=== PATIENT | male | born 1950 | race Two or more races ===

== ENCOUNTER → 2019-09-03 | Outpatient (CLI) | payer OTHER, MEDICAID ==
[~2019-09-03] VITALS: Ht 175.3 cm; Wt 140.6 kg
[~2019-09-03] MED LIST: ADENOSINE 118 MG in GIVE UN-DILUTED 0 ML IV ONE; ADENOSINE 90 MG/30 ML INJ IV ONE
== END | disposition home or self-care (01) ==
LOC: Rad HDHVI 09:05
PROVIDERS: ATTEND Internal Medicine
DX: K21.9 Gastro-esophageal reflux disease without esophagitis (principal); R07.9 Chest pain, unspecified; R06.02 Shortness of breath; E11.9 Type 2 diabetes mellitus without complications; R63.8 Other symptoms and signs concerning food and fluid intake; E78.5 Hyperlipidemia, unspecified; G47.33 Obstructive sleep apnea (adult) (pediatric); M19.90 Unspecified osteoarthritis, unspecified site; I10 Essential (primary) hypertension
CPT/HCPCS: 78452; 93005; 96374; 96375; A9500; J0153

== ENCOUNTER → 2019-09-08 | Outpatient (CLI) | payer OTHER, MEDICAID ==
[~2019-09-08] MED LIST changes: -ADENOSINE 118 MG in GIVE UN-DILUTED 0 ML IV ONE; -ADENOSINE 90 MG/30 ML INJ IV ONE; +AMLO10TA13 PO; +ATOR40TA52 PO; +ENAL20TA8 PO; +GABA300C10 PO; +INSLANTI SC; +METF-370 PO; +METH5T PO; +OMEP-335 PO
== END | disposition home or self-care (01) ==
LOC: Rad HDHVI 13:09
PROVIDERS: ATTEND Internal Medicine Cardiovascular Disease
DX: I11.9 Hypertensive heart disease without heart failure (principal); R06.02 Shortness of breath; R07.9 Chest pain, unspecified; G47.33 Obstructive sleep apnea (adult) (pediatric)
CPT/HCPCS: 93306

== ENCOUNTER → 2019-10-10 | Outpatient (CLI) | payer OTHER, MEDICAID ==
[~2019-10-10] MED LIST changes: +ENAL20TA PO; -ENAL20TA8 PO
[2019-10-10 09:40] VITALS: BP 162/60
--- NOTE | 2019-10-10 09:40 | NUR ---
[facility] PT ARRIVED TO THE [facility] FOR PRE OP EKG, CXR, AND LABS FOR [facility]. A/O X4, AMBULATORY.
--- NOTE | 2019-10-10 10:03 | NUR ---
EKG DONE BY JAMAAL WARE ...SR 78
[2019-10-10 10:10] VITALS: BP 158/59
--- NOTE | 2019-10-10 10:10 | NUR ---
Pre-Op Discharge Summary: See e-MAR for any medications given for this visit. Pre-op orders received and carried out per MD of EKG, LABS and chest xrays. Patient given a copy of EKG with instructions to go to [facility] out patient for further follow up care. PT ALSO TOLD COVID TESTING WILL BE PREFORMED AT [facility] FOR PRECAUTIONARY, AND THAT THEY NEED TO STAY ISOLATED UNTIL AFTER PROCEDURE. PT VERBALIZED UNDERSTANDING. NOTE EKG DONE BY JAMAAL WARE
[2019-10-10 12:03] LABS: Basophils # (auto) 0 10 ^3/uL (0-0.2); Basophils % (auto) 0.3 % (0.0-2.0); Eosinophils # (auto) 0.2 10 ^3/uL (0-0.8); Hematocrit 45.3 % (41.0-53.0); Hemoglobin 14.8 g/dL (13.5-17.5); Lymphocytes # (auto) 2.1 10 ^3/uL (0.4-5.4); Mean Corpuscular Hemoglobin 29.2 pg (28.0-32.0); Mean Corpuscular Hgb Conc. 32.7 g/dL (32.0-36.0); Mean Corpuscular Volume 89.4 fL (80.0-100.0); Monocytes # (auto) 0.7 10 ^3/uL (0-1.3); Monocytes % (auto) 7.6 % (0.0-12.0); Neutrophils # (auto) 6.4 10 ^3/uL (1.6-8.6); Neutrophils % (auto) 68.1 % (37.0-80.0); Nucleated Red Blood Cells % 0.1 %; Platelet Count (auto) 252 10^3/uL (140-450); Red Blood Cells 5.06 10^6/uL (4.5-5.90); Red Cell Distribution Width 12.8 % (11.8-14.3); White Blood Cell 9.5 10^3/uL (4.4-10.8)
[2019-10-10 12:15] LABS: INR 0.97 (0.9-1.15); Partial Thromboplastin Time 29.3 sec (23.64-32.05)
[2019-10-10 12:29] LABS: Potassium 4.2 mmol/L (3.5-5.1)
[2019-10-10 12:40] LABS: BUN/Creatinine Ratio 19.2; Calcium 8.6 mg/dL (8.5-10.1)
== END | disposition home or self-care (01) ==
LOC: Rad HDHVI 08:53
PROVIDERS: ATTEND Internal Medicine
DX: Z01.812 Encounter for preprocedural laboratory examination (principal); I70.0 Atherosclerosis of aorta
CPT/HCPCS: 36415; 71046; 80048; 85025; 85610; 85730; 93005; G0463

== ENCOUNTER 2019-10-15 07:49 | Inpatient (IN) | payer OTHER, MEDICAID ==
[~2019-10-15] VITALS: Ht 172.7 cm; Wt 140.6 kg
[2019-10-15] MEDS ORDERED: LIDOCAINE 2%HCL (LOCAL ANESTH.) INJ 20ML MDV ONE (08:00)
[2019-10-15] MEDS ORDERED: IOHEXOL 350 MG/ML 100ML IJ ONE (08:00)
[2019-10-15] MEDS ORDERED: ANGIOMAX 250 MG VIAL IV ONE ×2 (08:50→09:42)
[2019-10-15] MEDS ORDERED: VERAPAMIL 2.5MG/ML INJ 2ML VIAL IV ONE (08:51)
[2019-10-15] MEDS ORDERED: MIDAZOLAM HCL 1MG/1ML-2 ML VIAL ONE ×2 (08:51→09:40)
[2019-10-15] MEDS ORDERED: fentaNYL CITRATE 100 MCG/2 ML VL ONE (08:51)
[2019-10-15] MEDS ORDERED: HEPARIN SODIUM (PORCINE) 5000 UNITS/ML 1ML VIAL ONE (08:51)
[2019-10-15] MEDS ORDERED: SODIUM CHL 0.9% 50 ML ONE ×2 (08:52→09:42)
[2019-10-15] MEDS ORDERED: IODIXANOL 320MG/ML 100ML BTL IV ONE (09:43)
[2019-10-15] MEDS ORDERED: diphenhdrAMINE HCL 50 MG/1 ML VL ONE (09:49)
[2019-10-15] MEDS ORDERED: ASPirin 325 MG TAB ONE (09:56)
[2019-10-15] MEDS ORDERED: CLOPIDOGREL 300 MG TAB ONE (09:56)
[2019-10-15] MEDS ORDERED: DEXTROSE (50%) 50ML SYRG IV PRN (11:00)
[2019-10-15] MEDS ORDERED: HYDROcodone-ACET 5/325MG TAB PO PRN (11:00)
[2019-10-15] MEDS ORDERED: SODIUM CHLORIDE 0.9% 1,000 ML IV SCH (11:00)
[2019-10-15] MEDS ORDERED: NITROGLYCERIN 0.4 MG SL TAB SL PRN (11:00)
[2019-10-15] MEDS ORDERED: ONDANSETRON HCL 4 MG/2 ML VIAL IV PRN (11:00)
[2019-10-15] MEDS ORDERED: MORPHINE SULF INJ 2 MG/ML SYRINGE 1ML IV PRN (11:00)
[2019-10-15] MEDS ORDERED: ACETAMINOPHEN 500 MG TAB PO PRN (11:00)
[2019-10-15] MEDS ORDERED: methIMAzole 5 MG TAB PO ONE (11:30)
[2019-10-15] MEDS ORDERED: ENALAPRIL MALEATE 10 MG TAB PO ONE (11:30)
[2019-10-15] MEDS ORDERED: GABAPENTIN 300 MG CAP PO ONE (11:30)
[2019-10-15] MEDS ORDERED: InsuLIN REG 1unit/0.01ml Soln (100units/ml) SC SCH (11:30)
[2019-10-15] MEDS ORDERED: amLODIPine BESYLATE 5 MG TAB PO ONE (11:30)
[2019-10-15] MEDS ORDERED: ACCU-CHEK COMFORT CURVE STRIP VI SCH (11:30)
[2019-10-15] MEDS ORDERED: PANTOPRAZOLE 40 MG TAB PO ONE (11:30)
[2019-10-15 15:58] VITALS: BP 144/71
[2019-10-15] MEDS ORDERED: INSULIN LANTUS (GLARGINE) 1 /0.01ml (100units/ml) SC SCH (18:00)
[2019-10-15] MEDS ORDERED: ATORVASTATIN 20 MG TAB PO SCH (22:00)
[2019-10-16] MEDS ORDERED: GABAPENTIN 300 MG CAP PO SCH (10:00)
[2019-10-16] MEDS ORDERED: amLODIPine BESYLATE 5 MG TAB PO SCH (10:00)
[2019-10-16] MEDS ORDERED: PANTOPRAZOLE 40 MG TAB PO SCH (10:00)
[2019-10-16] MEDS ORDERED: methIMAzole 5 MG TAB PO SCH (10:00)
[2019-10-16] MEDS ORDERED: ENALAPRIL MALEATE 10 MG TAB PO SCH (10:00)
== END 2019-10-15 16:49 | disposition home or self-care (01) | DRG 247 ==
LOC: CATH 07:49 → TELE-WESTW 11:52
PROVIDERS: ADMIT Internal Medicine; ATTEND Internal Medicine
PROC: 4A023N7 Measurement of Cardiac Sampling and Pressure, Left Heart, Percutaneous Approach (ICD-10-PCS; principal; 2019-10-15)
PROC: 027034Z Dilation of Coronary Artery, One Artery with Drug-eluting Intraluminal Device, Percutaneous Approach (ICD-10-PCS; 2019-10-15)
PROC: B2151ZZ Fluoroscopy of Left Heart using Low Osmolar Contrast (ICD-10-PCS; 2019-10-15)
PROC: B2111ZZ Fluoroscopy of Multiple Coronary Arteries using Low Osmolar Contrast (ICD-10-PCS; 2019-10-15)
PROC: 4A033BC Measurement of Arterial Pressure, Coronary, Percutaneous Approach (ICD-10-PCS; 2019-10-15)
DX: I25.10 Atherosclerotic heart disease of native coronary artery without angina pectoris (principal); E78.5 Hyperlipidemia, unspecified; Z79.899 Other long term (current) drug therapy; Z11.59 Encounter for screening for other viral diseases
CPT/HCPCS: 82962; 92928; 93458; 93571; 99152; 99153; C1874; C1887; G0378; J1815; J2250; Q9967

== ENCOUNTER → 2020-08-24 | Outpatient (CLI) | payer OTHER, MEDICAID ==
[~2020-08-24] MED LIST changes: +AMLO-496 PO; -AMLO10TA13 PO; -ENAL20TA PO; +ENAL20TA8 PO
== END | disposition home or self-care (01) ==
LOC: Rad HDHVI 13:18
PROVIDERS: ATTEND Internal Medicine
DX: I11.9 Hypertensive heart disease without heart failure (principal)
CPT/HCPCS: 93306

== ENCOUNTER 2021-03-09 07:23 | Day surgery (SDC) | payer OTHER, MEDICAID ==
[~2021-03-09] VITALS: Ht 175.3 cm; Wt 134.7 kg
[2021-03-09] VITALS (9 sets, daily range): BP systolic 111–148; BP diastolic 59–85
[~2021-03-09 07:23] MED LIST changes: +ASPI1TAB19 PO; +CHOL100047 PO; +CLOP75TA28 PO; +DICL75TA3 PO; +INSUINJ7 SUBCUT; -METF-370 PO; +SEMA2INJ SC; +TRAM-297 PO
[2021-03-09] MEDS ORDERED: methylPREDNISolone SOD SUCC 125 MG/2 ML VL ONE (10:32)
[2021-03-09] MEDS ORDERED: ANGIOMAX 250 MG VIAL IV ONE (10:32)
[2021-03-09] MEDS ORDERED: fentaNYL CITRATE 100 MCG/2 ML VL ONE (10:33)
[2021-03-09] MEDS ORDERED: HEPARIN SODIUM (PORCINE) 5000 UNITS/ML 1ML VIAL ONE (10:33)
[2021-03-09] MEDS ORDERED: diphenhdrAMINE HCL 50 MG/1 ML VL ONE (10:33)
[2021-03-09] MEDS ORDERED: SODIUM CHL 0.9% 0 ML ONE (10:33)
[2021-03-09] MEDS ORDERED: VERAPAMIL 2.5MG/ML INJ 2ML VIAL IV ONE (10:33)
[2021-03-09] MEDS ORDERED: MIDAZOLAM HCL 2MG/2ML 2ml VIAL (1mg/ml) ONE (10:33)
[2021-03-09] MEDS ORDERED: FAMOTIDINE (10MG/ML) 2ML VL IV ONE (10:34)
== END 2021-03-09 15:05 | disposition home or self-care (01) ==
LOC: CATH 07:23
PROVIDERS: ATTEND Internal Medicine
DX: R94.39 Abnormal result of other cardiovascular function study (principal); I25.10 Atherosclerotic heart disease of native coronary artery without angina pectoris; Z87.891 Personal history of nicotine dependence; Z95.5 Presence of coronary angioplasty implant and graft; Z20.822 Contact with and (suspected) exposure to COVID-19; Z98.890 Other specified postprocedural states; Z79.899 Other long term (current) drug therapy
CPT/HCPCS: 93458; C1769; C1887; C1894; J1200; J1644; J2250; J2930; J3010; J3490; J7030; Q9967; U0003; 99152; 99153